=== PATIENT | male | born 1950 | race Caucasian/White ===

== ENCOUNTER 2018-01-03 19:16 | Emergency (ER) | payer MEDICARE ==
[2018-01-03 20:00] LABS: O2 Tension (PaO2) 90.2 mmHg (80.0-100.0); pH, Arterial 7.43 (7.35-7.45)
[2018-01-03 20:01] LABS: Base Excess (BEa) 3.3 mEq/L (0 (+/-) 2.5); Hematocrit-ABG 56.1 % (42.0-52.0); Hemoglobin (Hb) 13.8 g/dL (14.0-18.0)
[2018-01-03 20:02] LABS: Calcium, Ionized 1.2 mmol/L (1.12-1.30)
[2018-01-03 20:03] LABS: Analyzer IN Cardio ER; Puncture Site RR
[2018-01-03 20:03] LABS: #Lymphocytes 0.8 thou/uL (1.20-3.40); #Monocytes 0.5 thou/uL (0.11-0.59); #Neutrophils 7.9 thou/uL (1.40-6.50); %Basophils 0.1 % (0.0-1.0); %Eosinophils 0.2 % (0.0-10.0); %Lymphocytes 8.7 % (21.0-51.0); %Monocytes 4.9 % (0.0-10.0); %Neutrophils 86.1 % (42.0-75.0); Hemoglobin 14.6 g/dL (14.0-18.0); Mean Corpuscular HGB CONC 32.7 g/dL (32.0-36.0); Mean Corpuscular Hemoglobin 27.8 pg (27.0-31.0); Mean Platelet Volume 6.6 fL (7.4-10.4); Platelet Count 268 thou/uL (130-400); RBC Distribution Width 12.5 % (11.5-14.5); Red Blood Cell (RBC) Count 5.26 mill/uL (4.70-6.10); White Blood Cell (WBC) Count 9.1 thou/uL (4.8-10.8)
[2018-01-03 20:10] LABS: ALT (SGPT) 16 U/L (8-55); AST (SGOT) 21 U/L (5-34); Albumin 3.9 g/dL (3.4-4.8); Alkaline Phosphatase 80 U/L (40-150); Anion Gap 14 mmol/L (10-20); BUN (Urea Nitrogen) 11 mg/dL (8.4-25.7); Bilirubin, Total 0.3 mg/dL (0.2-1.2); Calc. Creatinine Clearance 0 mL/min (70-130); Calcium 9.7 mg/dL (7.8-10.44); Carbon Dioxide 25 mmol/L (23-31); Chloride 104 mmol/L (98-107); Estimated GFR-MDRD 73; Globulin 3.2 g/dL (2.4-3.5); Glucose 118 mg/dL (80-115); Potassium 4.4 mmol/L (3.5-5.1); Protein, Total 7.1 g/dL (5.8-8.1); Sodium 139 mmol/L (136-145)
[2018-01-03 20:14] LABS: CKMB 2.8 ng/mL (0-6.6); Troponin I Less than 0.010 ng/mL (< 0.028)
--- NOTE | 2018-01-03 20:17 | RAD ---
PORTABLE CHEST ONE VIEW: 01/03/18 at 7:58 p.m. HISTORY: Shortness of breath, fever, cough. FINDINGS/IMPRESSION: Comparison is made with exam of 11/05/15. There is continued elevation of the right hemidiaphragm. The heart size is normal. No lobar consolida tion, pneumothorax or pleural effusions are seen. A plate of atelectasis is seen at the right lung ba se. POS: [facility]
--- NOTE | 2018-01-03 21:10 | CT ---
CT PULMONARY ANGIOGRAM WITH IV CONTRAST AND 3D POSTPROCESSIN01/03/18 HISTORY: Cough, congestion, shortness of breath. FINDINGS: There is better opacification of the thoracic aorta compared to the pulmonary arterial vasculature. No thoracic aortic aneurysm or dissection is seen. No filling defects are seen in the central pulmona ry artery vasculature. Peripheral pulmonary embolism cannot be excluded on this study. No pleural or pericardial effusions are seen. No pneumothoraces, lobar consolidation or lung masses are noted. Ther e is elevation of the right hemidiaphragm. There is atelectatic change versus scarring in the lung ba ses. There is bronchiectasis in the lower lobes. Degenerative changes are present in the spine. There is a 1.6 cm right adrenal adenoma. IMPRESSION: No CT evidence of thoracic aortic aneurysm/dissection or central pulmonary embolism. POS: [facility]
== END 2018-01-03 22:50 | disposition home or self-care (01) ==
LOC: ERS 19:16
DX: J98.01 Acute bronchospasm (principal); J40 Bronchitis, not specified as acute or chronic; I10 Essential (primary) hypertension; K21.9 Gastro-esophageal reflux disease without esophagitis; F41.9 Anxiety disorder, unspecified; F32.9 Major depressive disorder, single episode, unspecified; Z79.899 Other long term (current) drug therapy
CPT/HCPCS: 36415; 71045; 71275; 80053; 82553; 82805; 84484; 85025; 87040; 93005; 94644; 96360; J7620

== ENCOUNTER 2018-01-07 11:58 | Inpatient (IN) | payer MEDICARE ==
[2018-01-07] MEDS ORDERED: methylPREDNISolone Sod Succ/PF 125 MG/2 ML VIAL ONE (14:46)
[2018-01-07 14:57] LABS: #Eosinphils 0.1 thou/uL (0.0-0.7); #Lymphocytes 0.9 thou/uL (1.20-3.40); #Monocytes 0.9 thou/uL (0.11-0.59); #Neutrophils 10.6 thou/uL (1.40-6.50); %Basophils 0.1 % (0.0-1.0); %Eosinophils 0.6 % (0.0-10.0); %Lymphocytes 7.5 % (21.0-51.0); %Monocytes 6.9 % (0.0-10.0); Hemoglobin 14.7 g/dL (14.0-18.0); Mean Corpuscular HGB CONC 32.5 g/dL (32.0-36.0); Mean Corpuscular Hemoglobin 27.5 pg (27.0-31.0); Mean Corpuscular Volume 84.9 fl (80.0-94.0); Mean Platelet Volume 6.2 fL (7.4-10.4); Platelet Count 322 thou/uL (130-400); RBC Distribution Width 12.5 % (11.5-14.5); Red Blood Cell (RBC) Count 5.34 mill/uL (4.70-6.10); White Blood Cell (WBC) Count 12.4 thou/uL (4.8-10.8)
--- NOTE | 2018-01-07 15:21 | RAD ---
CHEST ONE VIEW: History: Cough, congestion. Comparison: 01-03-18 FINDINGS: Cardiac silhouette and pulmonary vasculature are unremarkable. Right hemidiaphragm remains elevated. There is no lobar consolidation or evidence of pneumothorax. Mediastinum is midline. IMPRESSION: No active cardiopulmonary abnormalities are demonstrated. POS: [facility]
[2018-01-07 15:22] LABS: CKMB 3.9 ng/mL (0-6.6); Troponin I Less than 0.010 ng/mL (< 0.028)
[2018-01-07 15:27] LABS: ALT (SGPT) 21 U/L (8-55); AST (SGOT) 20 U/L (5-34); Albumin 3.9 g/dL (3.4-4.8); Alkaline Phosphatase 77 U/L (40-150); Anion Gap 15 mmol/L (10-20); BUN (Urea Nitrogen) 18 mg/dL (8.4-25.7); Bilirubin, Total 0.3 mg/dL (0.2-1.2); Calc. Creatinine Clearance 0 mL/min (70-130); Calcium 9.3 mg/dL (7.8-10.44); Carbon Dioxide 29 mmol/L (23-31); Chloride 102 mmol/L (98-107); Estimated GFR-MDRD 73; Globulin 2.8 g/dL (2.4-3.5); Glucose 104 mg/dL (80-115); Potassium 3.7 mmol/L (3.5-5.1); Protein, Total 6.7 g/dL (5.8-8.1); Sodium 142 mmol/L (136-145)
[2018-01-07] MEDS ORDERED: Acetaminophen 325 MG TAB PO PRN (17:58)
[2018-01-07] MEDS ORDERED: Guaifenesin DM 100-10/5 ML UDCUP PO PRN (17:58)
[2018-01-07] MEDS ORDERED: Senokot 8.6 MG TAB PO PRN (17:58)
--- NOTE | 2018-01-07 18:49 | HP ---
REASON FOR ADMISSION: Asthmatic bronchitis. HISTORY OF PRESENT ILLNESS: The patient gives history of having shortness of breath and coughing up yellowish green sputum for the last 3 weeks off and on. He has finished 1 course of Z-BERE and 2 roun ds of prednisone. In fact, he finished the last tablet of prednisone this morning. He has had mild subjective fever at home. Patient also states he has seasonal allergies. His nose is also stuffed u p at present. He had been to Dr. Dukes once and to the emergency room here a week back and has not had any resolution of his symptoms so far. He has taken his flu shot and pneumococcal shot for this year. He has had a stress test 4 years back which was negative per patient. No history of asthma o r COPD. No complaints of chest pain, no palpitation. Patient normally ambulates inside the house an d is not a very active person. PAST MEDICAL AND SURGICAL HISTORY: History of essential tremor, depression, anxiety, obesity, hypert ension, dyslipidemia, benign prostatic hypertrophy, tonsillectomy, left shoulder cyst removal, obstru ctive sleep apnea likely noncompliant with CPAP. CURRENT MEDICATIONS: Doxazosin 1 mg p.o. daily, escitalopram 20 mg p.o. daily, Zocor 10 mg p.o. keyshawn y, vitamin D3 of 1000 units p.o. daily, Protonix 40 mg p.o. daily, Reglan 10 mg p.o. twice daily p.r. n., uses Reglan to help with his GERD symptoms, Forfivo XL 450 mg p.o. daily. ALLERGIES: FLOMAX and SULFA. PERSONAL HISTORY: Does not abuse alcohol or drugs. No history of smoking. FAMILY HISTORY: Mother at the age of 83 from old age and dementia. Father was alcoholic and di ed secondary to complications from the same in his 50s. REVIEW OF SYSTEMS: The following complete review of systems was negative, unless otherwise mentioned in the HPI or below: Constitutional: Weight loss or gain, ability to conduct usual activities. Sk in: Rash, itching. Eyes: Double vision, pain. ENT/Mouth: Nose bleeding, neck stiffness, pain, te nderness. Cardiovascular: Palpitations, dyspnea on exertion, orthopnea. Respiratory: Shortness of breath, wheezing, cough, hemoptysis, fever or night sweats. Gastrointestinal: Poor appetite, abdom inal pain, heartburn, nausea, vomiting, constipation, or diarrhea. Genitourinary: Urgency, frequenc y, dysuria, nocturia. Musculoskeletal: Pain, swelling. Neurologic/Psychiatric: Anxiety, depressio n. Allergy/Immunologic: Skin rash, bleeding tendency. PHYSICAL EXAMINATION: GENERAL: The patient is a 67-year-old male who is currently not in any acute distress. VITAL SIGNS: Blood pressure 138/80, pulse 100 per minute, respiratory rate 16 per minute, temperatur e 97.8 degrees Fahrenheit, saturating 94% on room air. NECK: Supple, no elevated JVD. HEENT: Eyes, extraocular muscles intact. Pupils are reacting to light. Oral cavity, mucous membran es are moist. No exudates or congestion. CARDIOVASCULAR: S1, S2 heard. Regular rhythm. RESPIRATORY: Air entry 1+ bilateral. Scattered rhonchi plus bilateral. Mild wheezes bilaterally. ABDOMEN: Soft, bowel sounds heard. No tenderness, rigidity or guarding. EXTREMITIES: No peripheral edema or calf tenderness. VASCULAR SYSTEM: Peripheral pulses 1+ bilateral, no ischemic ulcerations or gangrene. CENTRAL NERVOUS SYSTEM: No gross focal deficits seen. Patient is alert, awake, oriented well. PSYCHIATRIC: The patient's mood is euthymic. No hallucinations or delusions. LABORATORY AND X-RAY FINDINGS: White count of 12, H&H 14 and 45, platelet count 322 with 85% neutrop hils, MCV is 84. Electrolytes are stable. BUN 18, creatinine 1.0. Glucose 104. First set of cardi ac enzymes are negative. Albumin is 3.9. BNP is 23. He has had a prior stress test done here in which showed an EF of 72% and was unremarkable. Chest x-ray done showed no acute cardiopulmona ry abnormalities. CLINICAL IMPRESSION AND PLAN: The patient will be admitted to medical floor for likely asthmatic bro nchitis. We will obtain a viral PCR as well. The patient will be placed on Solu-Medrol IV q.6 hourl y along with gentle hydration with normal saline at 60 mL per hour for 1 liter. He will also be on D uoNebs. We will continue his doxazosin, Lexapro, simvastatin as before. We will place him on empiri c Levaquin for now. The patient has finished nearly 2 rounds of steroids in the outpatient setting f rom last 3 weeks and has also taken a full course of Z-BERE in the last 3 weeks. We will continue to closely monitor him on medical floor. The patient will be advised to continue his CPAP at his home s ettings.
[2018-01-07 19:13] VITALS: BMI 35.4
[2018-01-07] MEDS: Metoclopramide HCl 10 MG TAB PO SCH (20:31)
[2018-01-07] MEDS: Simvastatin 20 MG TAB PO SCH (20:31)
[2018-01-07] MEDS: Famotidine 20 MG TAB PO SCH (20:31)
[2018-01-07] MEDS: Sodium Chloride 0.9% 1,000 ML IV SCH (20:32)
[2018-01-08 05:39] LABS: Hemoglobin 14.1 g/dL (14.0-18.0); Mean Corpuscular HGB CONC 31.6 g/dL (32.0-36.0); Mean Corpuscular Hemoglobin 27.6 pg (27.0-31.0); Mean Corpuscular Volume 87.4 fl (80.0-94.0); Mean Platelet Volume 6.7 fL (7.4-10.4); Platelet Count 317 thou/uL (130-400); RBC Distribution Width 12.6 % (11.5-14.5); White Blood Cell (WBC) Count 13.7 thou/uL (4.8-10.8)
[2018-01-08 05:40] LABS: Band 4 % (5-11); Lymphocytes 6 % (21-51); MDiff Complete? YES; Monocytes 4 % (0-10); Neutrophil 86 % (42-75); PLT Morphology Comment Appears Adequate
[2018-01-08 05:59] LABS: Anion Gap 12 mmol/L (10-20); BUN (Urea Nitrogen) 20 mg/dL (8.4-25.7); Calc. Creatinine Clearance 132 mL/min (70-130); Carbon Dioxide 30 mmol/L (23-31); Chloride 104 mmol/L (98-107); Estimated GFR-MDRD 88; Glucose 134 mg/dL (80-115); Potassium 4.2 mmol/L (3.5-5.1); Sodium 142 mmol/L (136-145)
[2018-01-08] MEDS: Metoclopramide HCl 10 MG TAB PO SCH ×2 (08:19→20:14)
[2018-01-08] MEDS: Famotidine 20 MG TAB PO SCH ×2 (08:19→20:14)
[2018-01-08] MEDS: Escitalopram Oxalate 10 mg Tablet PO SCH (08:19)
[2018-01-08] MEDS: Doxazosin Mesylate 1 MG TAB PO SCH (08:19)
[2018-01-08] MEDS: Enoxaparin Sodium 40 MG/0.4 ML SYRINGE SC SCH (08:19)
[2018-01-08] MEDS: Sodium Chloride 0.9% 1,000 ML IV SCH (10:42)
--- NOTE | 2018-01-08 10:59 | PDOC.PN ---
- Subjective Encounter Start Date: 01/08/18 Encounter Start Time: 13:00 Subjective: Continued cough and wheezing, better with nebs. Still requiring O2. - Objective Resuscitation Status: Resuscitation Status FULL:Full Resuscitation MAR Reviewed: Yes Vital Signs & Weight: Vital Signs (12 hours) Temp Pulse Resp BP Pulse Ox 01/08/18 08:00 97.6 F 94 20 95 01/08/18 07:43 97.6 F 94 20 158/94 H 91 L 01/08/18 06:13 91 18 93 L 01/08/18 04:00 97.9 F 66 18 126/83 93 L 01/08/18 01:49 97.8 F 93 20 133/69 92 L 01/08/18 00:29 96 16 93 L Weight Weight 254 lb I&O: 01/07/18 01/08/18 01/09/18 06:59 06:59 06:59 Intake Total 1140 240 Balance 1140 240 Result Diagrams: 01/08/18 04:20 01/08/18 04:20 Phys Exam - Physical Examination Constitutional: NAD HEENT: moist MMs Respiratory: no rales, no rhonchi scattered wheezing, paroxysmal cough Cardiovascular: RRR, no significant murmur Gastrointestinal: soft, positive bowel sounds Musculoskeletal: no edema Neurological: non-focal, moves all 4 limbs Psychiatric: normal affect, A&O x 3 Dx/Plan (1) Asthmatic bronchitis Code(s): J45.909 - UNSPECIFIED ASTHMA, UNCOMPLICATED Status: Acute Qualifiers: Asthma severity: moderate Comment: requiring oxygen overnight, on steroids, nebs (2) CATHIE (obstructive sleep apnea) Code(s): G47.33 - OBSTRUCTIVE SLEEP APNEA (ADULT) (PEDIATRIC) Status: Chronic Comment: on night time CPAP (3) Hypertension Code(s): I10 - ESSENTIAL (PRIMARY) HYPERTENSION Status: Chronic (4) Hyperlipidemia Code(s): E78.5 - HYPERLIPIDEMIA, UNSPECIFIED Status: Chronic - Plan cont current plan of care, respiratory therapy Consult pulmonology -: Counselled patient to use CPAP even if have to shave to use it * . - Discharge Day Encounter end time: 13:20
--- NOTE | 2018-01-08 14:06 | CON ---
DATE OF CONSULTATION: 01/08/2018 HISTORY: Mr. Trotter is a 67-year-old morbidly obese gentleman. Surprisingly he never smoke d. He has quite a bit of shortness of breath, coughing, unresponsive to usual home medication. He has never seen a polisher apprentice before, but I see he had a PFT done which was mainly a restrictive pulmonary impairment. He says he is a couch potato and apparently has not been walking any distance. He has a previous his tory of bronchitis, but no pneumonia, no history of asthma. PAST MEDICAL HISTORY: Sleep apnea by history, though he has never been tested, refused to wear a CPA P mask. History of hypertension, reflux, depression, lipidemia. PAST SURGICAL HISTORY: Prostate biopsy, back cyst. SOCIAL/FAMILY HISTORY: No alcohol, tobacco abuse, minimal alcohol years ago. ALLERGIES: SULFA. REVIEW OF SYSTEMS: Otherwise, 10-point negative. SOCIAL HISTORY: Office related work. Please note I reviewed all his x-rays, including all his medical records. There are no family members to get additional information. PHYSICAL EXAMINATION: VITAL SIGNS: Sats 95 on 3 liters. Blood pressure is 148/90, respiratory 18, temperature 97. CHEST: Chest revealed minimal wheezing. CARDIAC: Normal S1-S2. No gallops. ABDOMEN: Soft. No mass. White count 13,000, H&H 8 and 34, platelet count 317. Electrolytes are normal. So far cultures negative. As noted, his initial chest x-ray really did not show any obvious infiltra gael. IMPRESSION: 1. Chronic obstructive pulmonary disease exacerbation. 2. Bronchitis in a nonsmoker. 3. Morbid obesity. 4. Sleep apnea. 5. Hypertension. 6. Elevated right hemidiaphragm. PLAN: I have added Symbicort to his present aggressive neb treatments, steroids, and antibiotics. Will follow. Once again will encourage the patient to lose weight. We will encourage him to have a sleep study. This is a consult note, 70 minutes out of which 50% of the time was spent at the bedside direct patie nt care.
[2018-01-08] MEDS: Mometasone/Formoterol 120 PUFF INHALER INH SCH (18:44)
[2018-01-08] MEDS: Simvastatin 20 MG TAB PO SCH (20:14)
[2018-01-09] MEDS: Sodium Chloride 0.9% 1,000 ML IV SCH ×3 (03:33→20:40)
[2018-01-09] MEDS: Mometasone/Formoterol 120 PUFF INHALER INH SCH ×2 (06:16→18:33)
[2018-01-09] MEDS: Metoclopramide HCl 10 MG TAB PO SCH ×2 (08:07→20:39)
[2018-01-09] MEDS: Famotidine 20 MG TAB PO SCH ×2 (08:07→20:40)
[2018-01-09] MEDS: Doxazosin Mesylate 1 MG TAB PO SCH (08:07)
[2018-01-09] MEDS: Escitalopram Oxalate 10 mg Tablet PO SCH (08:07)
[2018-01-09] MEDS: Enoxaparin Sodium 40 MG/0.4 ML SYRINGE SC SCH (08:07)
[2018-01-09] MEDS: guaiFENesin ER 600 MG TAB PO SCH ×2 (09:22→20:40)
--- NOTE | 2018-01-09 09:34 | PRG ---
DATE OF SERVICE: 01/09/2018 This morning he is still coughing, though clearly he is better. He is still wheezing. His son at th e bedside who said his father's cough is not any better. PHYSICAL EXAMINATION: VITAL SIGNS: O2 sats 95% on 3 liters, temperature is 99, blood pressure 155/93. CHEST: Chest has minimal wheezing. CARDIAC: Normal S1, S2. ABDOMEN: Soft, no masses. IMPRESSION: 1. Chronic obstructive pulmonary disease exacerbation. 2. Bronchitis. PLAN: Dulera, Mucinex, steroids continued. PT. I will follow.
--- NOTE | 2018-01-09 10:14 | PDOC.PN ---
- Subjective Encounter Start Date: 01/09/18 Encounter Start Time: 13:40 Subjective: Cough mildly improved. SOB better. O2 weaned down to 2L NC. - Objective Resuscitation Status: Resuscitation Status FULL:Full Resuscitation MAR Reviewed: Yes Vital Signs & Weight: Vital Signs (12 hours) Temp Pulse Resp BP Pulse Ox 01/09/18 08:00 97.9 F 100 20 152/93 H 94 L 01/09/18 06:16 95 16 95 01/09/18 06:13 95 16 95 01/09/18 04:00 97.8 F 92 20 155/93 H 95 01/09/18 00:00 97.7 F 101 H 22 H 149/84 H 93 L 01/08/18 23:08 97 16 97 Weight Weight 254 lb I&O: 01/08/18 01/09/18 01/10/18 06:59 06:59 06:59 Intake Total 1140 1680 360 Balance 1140 1680 360 Result Diagrams: 01/08/18 04:20 01/08/18 04:20 Phys Exam - Physical Examination Constitutional: NAD HEENT: moist MMs Respiratory: no rales, no rhonchi rare wheeze, good air movement throughout Cardiovascular: RRR, no significant murmur Gastrointestinal: soft, positive bowel sounds Musculoskeletal: no edema Neurological: non-focal, moves all 4 limbs Psychiatric: normal affect, A&O x 3 Dx/Plan (1) Asthmatic bronchitis Code(s): J45.909 - UNSPECIFIED ASTHMA, UNCOMPLICATED Status: Acute Qualifiers: Asthma severity: moderate Comment: requiring oxygen, on steroids, Levaquin, Duljuan f, pepito, Dr. Swanson following (2) CATHIE (obstructive sleep apnea) Code(s): G47.33 - OBSTRUCTIVE SLEEP APNEA (ADULT) (PEDIATRIC) Status: Chronic Comment: CPAP won't seal with stoner and doesn't want to shave (3) Hypertension Code(s): I10 - ESSENTIAL (PRIMARY) HYPERTENSION Status: Chronic (4) Hyperlipidemia Code(s): E78.5 - HYPERLIPIDEMIA, UNSPECIFIED Status: Chronic - Plan cont current plan of care, respiratory therapy, DVT proph w/lovenox, DVT proph w /SCDs May end up needed home oxygen * . - Discharge Day Encounter end time: 14:00
[2018-01-09] MEDS ORDERED: cloNIDine 0.1 MG TAB PO PRN (20:21)
[2018-01-09] MEDS: Simvastatin 20 MG TAB PO SCH (20:40)
[2018-01-10] MEDS: Mometasone/Formoterol 120 PUFF INHALER INH SCH (06:22)
[2018-01-10] MEDS: Escitalopram Oxalate 10 mg Tablet PO SCH (07:53)
[2018-01-10] MEDS: guaiFENesin ER 600 MG TAB PO SCH (07:53)
[2018-01-10] MEDS: Enoxaparin Sodium 40 MG/0.4 ML SYRINGE SC SCH (07:53)
[2018-01-10] MEDS: Famotidine 20 MG TAB PO SCH (07:53)
[2018-01-10] MEDS: Metoclopramide HCl 10 MG TAB PO SCH (07:54)
[2018-01-10] MEDS: Doxazosin Mesylate 1 MG TAB PO SCH (07:54)
[2018-01-10] MEDS ORDERED: predniSONE 20 MG TAB PO SCH (09:00)
[2018-01-10] MEDS ORDERED: Lisinopril 20 MG TAB PO SCH (09:00)
--- NOTE | 2018-01-10 09:04 | PRG ---
DATE OF SERVICE: 01/10/2018 This morning he is awake, response is better. His cough is improved. PHYSICAL EXAMINATION: VITAL SIGNS: Sats 90% on 2 liters, temperature is 97, respirations 16, blood pressure 102/89. CHEST: No wheezing. HEART: Normal S1 and S2. IMPRESSION: 1. Bronchitis. 2. Chronic obstructive pulmonary disease. 3. Asthma. 4. Sleep apnea. PLAN: Switch over to oral prednisone. He can be discharged home anytime.
--- NOTE | 2018-01-10 09:55 | PDOC.PN ---
- Subjective Encounter Start Date: 01/10/18 Encounter Start Time: 12:30 Subjective: Patient doing much better. Coughing markedly improved. Still desating -: on oxygen. 86% on RA lying at rest right now. - Objective Resuscitation Status: Resuscitation Status FULL:Full Resuscitation MAR Reviewed: Yes Vital Signs & Weight: Vital Signs (12 hours) Temp Pulse Resp BP Pulse Ox 01/10/18 08:00 97.7 F 96 16 182/109 H 97 01/10/18 06:25 96 01/10/18 06:24 91 16 96 01/10/18 06:22 91 16 96 01/10/18 01:16 97 16 95 Weight Weight 254 lb I&O: 01/09/18 01/10/18 01/11/18 06:59 06:59 06:59 Intake Total 1680 1870 240 Balance 1680 1870 240 Result Diagrams: 01/08/18 04:20 01/08/18 04:20 Phys Exam - Physical Examination Constitutional: NAD HEENT: moist MMs Respiratory: no rales, no rhonchi rare wheeze, no coughing fit Cardiovascular: RRR, no significant murmur Gastrointestinal: soft, positive bowel sounds Musculoskeletal: no edema Neurological: non-focal, moves all 4 limbs Psychiatric: normal affect, A&O x 3 Dx/Plan (1) Asthmatic bronchitis Code(s): J45.909 - UNSPECIFIED ASTHMA, UNCOMPLICATED Status: Acute Qualifiers: Asthma severity: moderate Comment: requiring oxygen, on steroids, Levaquin, Dulera, nebs, Dr. Swanson following (2) CATHIE (obstructive sleep apnea) Code(s): G47.33 - OBSTRUCTIVE SLEEP APNEA (ADULT) (PEDIATRIC) Status: Chronic Comment: CPAP won't seal with stoner and doesn't want to shave (3) Hypertension Code(s): I10 - ESSENTIAL (PRIMARY) HYPERTENSION Status: Chronic (4) Hyperlipidemia Code(s): E78.5 - HYPERLIPIDEMIA, UNSPECIFIED Status: Chronic - Plan cont current plan of care, continue antibiotics, respiratory therapy O2 sat 86% on RA. Patient will require jail home oxygen. Will -: have case management set up and then will d/c home later today. * . - Discharge Day Encounter end time: 12:55
[2018-01-10 11:26] VITALS: BP 157/97; TEMP 98.2
--- NOTE | 2018-01-10 18:56 | DIS ---
PRIMARY CARE PHYSICIAN: Angelo Dukes M.D. ADMISSION DIAGNOSES: 1. Asthmatic bronchitis. 2. Obstructive sleep apnea. DISCHARGE DIAGNOSES: 1. Chronic obstructive pulmonary disease with acute asthmatic bronchitis. 2. Obstructive sleep apnea. 3. Hypertension. 4. Hyperlipidemia. PROCEDURES: None. CONSULTATIONS: Pulmonology, Dr. Swanson. SUMMARY OF HOSPITAL COURSE: This is a 67-year-old white male with a recent history of multiple breat khanh exacerbations and has had to be hospitalized in the last year, seen by Dr. Swanson at that time and diagnosed with COPD. He never followed up and did not report a history of COPD when he presented wi th 3 weeks of on and off coughing with a productive of yellow-green sputum, cough got much worse. He is wheezing a lot with it. He did have some Z-Blayne and two rounds of prednisone. When he presented to the emergency room, he was having significant increased work of breathing, wheezing and room air h ypoxia. The patient was admitted to the hospital, Dr. Swanson was consulted. The patient was put on st eroids, antibiotics, and nebulizers. He slowly improved over the course of the hospitalization; burns louis, he remained room air hypoxic throughout his hospital stay even after his cough had resolved. He was saturating 86% on room air the day of discharge, so he is being discharged with home oxygen. DISCHARGE MANAGEMENT: Discharged home with home health to provide home oxygen. ACTIVITY: As tolerated. DIET: Healthy heart, low sodium diet. Home equipment supplies, nebulizer treatments and oxygen. FOLLOWUP: Follow up with Dr. Swanson in 2-[address] Dukes in 2-3 weeks. DISCHARGE MEDICATIONS: 1. DuoNeb every 6 hours as needed for coughing, wheezing, shortness of breath. Patient already has a nebulizer at home. 2. Levaquin 500 mg daily for another 2 days. 3. Lisinopril 20 mg daily. 4. Dulera 200/5 mcg 2 puffs inhaled twice a day. 5. Prednisone 20 mg twice a day for 4 more days and he is to resume all of his home medications. 6. Zyrtec 10 mg daily. 7. Metoclopramide 10 mg twice a day. 8. Protonix 40 mg daily. 9. Zocor 10 mg at night. 10. Trazodone 100 mg at night. 11. Bupropion 300 mg each morning. 12. Cardura 1 mg daily. 13. Escitalopram 10 mg daily.
== END 2018-01-10 15:19 | disposition home health service (06) | DRG 192 ==
LOC: ERS 11:58 → T4-B 16:48
PROVIDERS: ADMIT Internal Medicine; ATTEND Internal Medicine
DX: J44.1 Chronic obstructive pulmonary disease with (acute) exacerbation (principal); E66.01 Morbid (severe) obesity due to excess calories; E78.5 Hyperlipidemia, unspecified; G47.33 Obstructive sleep apnea (adult) (pediatric); I10 Essential (primary) hypertension; F41.9 Anxiety disorder, unspecified; J44.0 Chronic obstructive pulmonary disease with (acute) lower respiratory infection; F32.9 Major depressive disorder, single episode, unspecified; J20.9 Acute bronchitis, unspecified; J45.40 Moderate persistent asthma, uncomplicated; J98.6 Disorders of diaphragm; Z68.35 Body mass index [BMI] 35.0-35.9, adult
CPT/HCPCS: 36415; 71045; 80048; 80053; 82553; 83880; 84484; 85025; 87633; 94640; 96374; 99214; G0463; J1650; J2920; J2930; J7620

== ENCOUNTER 2018-01-13 10:59 | Outpatient (CLI) | payer MEDICARE ==
[2018-01-13] MEDS ORDERED: Iopamidol 370 76% 100 ML VIAL ONE (16:47)
== END 2018-01-13 11:00 | disposition home or self-care (01) ==
LOC: BICCT 10:59
PROVIDERS: ATTEND Urology
DX: R31.29 Other microscopic hematuria (principal); N32.89 Other specified disorders of bladder; K85.90 Acute pancreatitis without necrosis or infection, unspecified; D35.01 Benign neoplasm of right adrenal gland; R19.00 Intra-abdominal and pelvic swelling, mass and lump, unspecified site
CPT/HCPCS: 74178

== ENCOUNTER 2018-02-18 10:45 | Day surgery (SDC) | payer MEDICARE ==
[2018-02-17 08:51] VITALS: BMI 36.9
[2018-02-18] MEDS ORDERED: Fleet Enema 133 ML BOT FS SCH (11:30)
[2018-02-18] MEDS ORDERED: Lidocaine Viscous Sol 2% 15 ml UD Cup ONE (12:03)
--- NOTE | 2018-02-18 14:11 | OP ---
DATE OF PROCEDURE: 02/18/2018 PROCEDURE: Esophagogastroduodenoscopy and colonoscopy with snare polypectomy and biopsy. PREOPERATIVE DIAGNOSIS: Gastroesophageal reflux disease and change in bowel habits with constipation . OPERATIVE NOTE: Informed consent was obtained from the patient. He was sedated with total intraveno us anesthesia. The bite block was placed and the endoscope was advanced easily to the second portion of the duodenum and retroflexion was performed in the stomach. The esophagus was normal. The GE ju nction was normal. The stomach was normal including retroflexed views. The pylorus and first and se cond portions of the duodenum were normal. The patient was turned around. Rectal exam was performed and was normal. The colonoscope was advanced to the cecum where the ileocecal valve and appendiceal orifice were clearly identified. The preparation quality was fair. Two polyps were removed from th e ascending colon. One was removed by cold snare and measured 4 mm, the second was a 3 mm polyp christiano [place] by cold biopsy forceps. A 7 mm polyp was removed from the hepatic flexure by snare cautery polyp ectomy. Three polyps measuring 4-5 mm were removed from the hepatic flexure by cold snare polypectom y. A 4 mm polyp was removed by cold snare polypectomy from the descending colon. The remainder of t he colonic mucosa was normal. Retroflexed views in the rectum were normal. IMPRESSION: 1. Normal esophagogastroduodenoscopy. 2. Two ascending polyps. 3. Four hepatic flexure polyps. 4. One descending colon polyp. 5. Otherwise normal colonoscopy with fair bowel prep. RECOMMENDATIONS: 1. Await histopathology. 2. Repeat colonoscopy in 3 years. 3. Continue pantoprazole. 4. Restart MiraLax 17 grams daily. 5. Follow up in GI Clinic in a month.
[2018-02-18] MEDS ORDERED: PROPOFOL 200 MG/20 ML VIAL ONE (15:54)
[2018-02-18] MEDS ORDERED: Lidocaine 1% PF 5 ML VIAL ONE (15:54)
== END 2018-02-18 14:50 | disposition home or self-care (01) ==
LOC: SDC 10:45
PROVIDERS: ATTEND Internal Medicine Gastroenterology
PROC: 0DBK8ZX Excision of Ascending Colon, Via Natural or Artificial Opening Endoscopic, Diagnostic (ICD-10-PCS; principal; 2018-02-18)
PROC: 0DBK8ZX Excision of Ascending Colon, Via Natural or Artificial Opening Endoscopic, Diagnostic (ICD-10-PCS; 2018-02-18)
PROC: 0DBL8ZX Excision of Transverse Colon, Via Natural or Artificial Opening Endoscopic, Diagnostic (ICD-10-PCS; 2018-02-18)
PROC: 0DBM8ZX Excision of Descending Colon, Via Natural or Artificial Opening Endoscopic, Diagnostic (ICD-10-PCS; 2018-02-18)
PROC: 0DJ08ZZ Inspection of Upper Intestinal Tract, Via Natural or Artificial Opening Endoscopic (ICD-10-PCS; 2018-02-18)
DX: D12.2 Benign neoplasm of ascending colon (principal); D12.4 Benign neoplasm of descending colon; D12.3 Benign neoplasm of transverse colon; K21.9 Gastro-esophageal reflux disease without esophagitis; Z88.2 Allergy status to sulfonamides; Z88.8 Allergy status to other drugs, medicaments and biological substances
CPT/HCPCS: 88305; J2001; J2704

== ENCOUNTER 2018-05-06 07:31 | Outpatient (CLI) | payer MEDICARE ==
--- NOTE | 2018-05-06 14:19 | NM ---
RADIONUCLIDE GASTRIC EMPTYING SCAN: Date: 05/06/18 HISTORY: Gastroesophageal reflux disease without esophagitis. RADIOPHARMACEUTICAL: 2.2 mCi technetium-99m sulfur colloid administered orally in scrambled eggs. FINDINGS/IMPRESSION: There is 41% emptying the ingested gastric contents at 1 hour, 45% emptying at 2 hours, and 99% empty ing at 3 hours. The calculated gastric emptying 1/2 time measures 124 minutes. POS: [facility]
== END 2018-05-06 07:32 | disposition home or self-care (01) ==
LOC: NM 07:31
PROVIDERS: ATTEND Internal Medicine Gastroenterology
DX: K21.9 Gastro-esophageal reflux disease without esophagitis (principal); K59.00 Constipation, unspecified; R11.10 Vomiting, unspecified
CPT/HCPCS: 78264; A9541

== ENCOUNTER 2018-06-02 12:36 | Outpatient (CLI) | payer MEDICARE ==
[2018-06-02] MEDS ORDERED: Iopamidol 370 76% 100 ML VIAL ONE (12:59)
== END 2018-06-02 12:37 | disposition home or self-care (01) ==
LOC: BICCT 12:36
PROVIDERS: ATTEND Otolaryngology
DX: D10.1 Benign neoplasm of tongue (principal); K14.6 Glossodynia; R53.83 Other fatigue
CPT/HCPCS: 70491

== ENCOUNTER 2018-06-26 13:13 | Day surgery (SDC) | payer MEDICARE ==
[2018-06-26 13:22] VITALS: BMI 36.3
[2018-06-26] MEDS ORDERED: Lidocaine 1% PF 5 ML VIAL ONE (13:41)
[2018-06-26 14:10] VITALS: BP 117/75; TEMP 97.5
--- NOTE | 2018-06-26 14:45 | ULT ---
THYROID ULTRASOUND: Date: 06/26/18 HISTORY: Thyroid nodule. COMPARISON: CT neck from outside facility dated 06/02/18. FINDINGS/IMPRESSION: Real-time examination of right thyroid nodule, which was wider than tall, solid, and isoechoic, with sharply marginated borders without echogenic focus. This is TI-RADS 3: Mildly suspicious. Given its size, follow-up in 6 months-1 year is recommended. No fine needle aspiration is required at this time . POS: [facility]
== END 2018-06-26 14:16 | disposition home or self-care (01) ==
LOC: ULT 13:13
PROVIDERS: ATTEND Otolaryngology
DX: E04.1 Nontoxic single thyroid nodule (principal); G47.30 Sleep apnea, unspecified; I10 Essential (primary) hypertension; K21.9 Gastro-esophageal reflux disease without esophagitis; F32.9 Major depressive disorder, single episode, unspecified; J34.3 Hypertrophy of nasal turbinates; J34.2 Deviated nasal septum; Z79.899 Other long term (current) drug therapy; Z88.2 Allergy status to sulfonamides; Z88.8 Allergy status to other drugs, medicaments and biological substances; Z98.890 Other specified postprocedural states
CPT/HCPCS: 76536; J2001

== ENCOUNTER 2018-07-03 07:42 | Outpatient (CLI) | payer MEDICARE ==
--- NOTE | 2018-07-03 10:43 | CT ---
CT ABDOMEN WITH CONTRAST CT PELVIS WITH CONTRAST: DATE: 07/03/18 TIME: 0816 HOURS HISTORY: 67-year-old male with periumbilical pain. R10.33. COMPARISON: 01/01/17. TECHNIQUE: IV injection of iodinated contrast media: 100 mL [id number]. Oral contrast media: Readi-Cat. FINDINGS: The appendix is normal (it abuts the inferior surface of the cecum throughout its short course and is therefore difficult to see on axial images, and best visualized on coronal images 66-72 of 181, seri es 601). The tiny right adrenal nodule previously mentioned is unchanged and is probably an adenoma. Left adrenal is normal. Hepatic attenuation is diffusely slightly low, suggestive of fatty liver. Aga in noted is the chronically elevated right hemidiaphragm. No abdominal aortic aneurysm. Bilateral kid neys, pancreas, left adrenal, and spleen are normal. No small bowel dilation. Mild indentation of the bladder base by mildly enlarged prostate gland. Urinary bladder is incompletely distended. No ascite s or pneumoperitoneum. Minimal questionable fat stranding around segment of proximal sigmoid colon pr obably represents branches of small blood vessels rather than edema, and probably does not represent diverticulitis. There is no pneumoperitoneum or ascites. Plate-like density at right lower lobe is co nsistent with scar, unchanged since the previous CT. New small scar at posterior base of left lung. N o pleural effusion. IMPRESSION: 1. Normal appendix. 2. No acute findings. 3. Hepatic steatosis. 4. Chronically elevated right hemidiaphragm. THU POS: [facility]
[2018-07-03] MEDS ORDERED: Iopamidol 370 76% 100 ML VIAL ONE (14:19)
== END 2018-07-03 07:43 | disposition home or self-care (01) ==
LOC: CT 07:42
PROVIDERS: ATTEND Internal Medicine Gastroenterology
DX: R10.33 Periumbilical pain (principal); K58.1 Irritable bowel syndrome with constipation; K21.9 Gastro-esophageal reflux disease without esophagitis; K76.0 Fatty (change of) liver, not elsewhere classified; Q79.1 Other congenital malformations of diaphragm
CPT/HCPCS: 74177; 82565

== ENCOUNTER 2018-10-10 12:05 | Emergency (ER) | payer MEDICARE ==
[2018-10-10 12:55] LABS: #Eosinphils 0.3 thou/uL (0.0-0.7); #Lymphocytes 1.8 thou/uL (1.20-3.40); #Monocytes 0.7 thou/uL (0.11-0.59); #Neutrophils 11.8 thou/uL (1.40-6.50); %Basophils 0.2 % (0.0-1.0); %Lymphocytes 12.2 % (21.0-51.0); %Neutrophils 80.6 % (42.0-75.0); Hemoglobin 16.6 g/dL (14.0-18.0); Mean Corpuscular HGB CONC 32.2 g/dL (32.0-36.0); Mean Corpuscular Hemoglobin 27.4 pg (27.0-31.0); Mean Corpuscular Volume 84.9 fL (78.0-98.0); Mean Platelet Volume 7.1 fL (7.4-10.4); Platelet Count 252 thou/uL (130-400); RBC Distribution Width 13.9 % (11.5-14.5); Red Blood Cell (RBC) Count 6.07 mill/uL (4.70-6.10); White Blood Cell (WBC) Count 14.6 thou/uL (4.8-10.8)
--- NOTE | 2018-10-10 13:13 | RAD ---
PORTABLE CHEST ONE VIEW: Date: 10-10-18 Time: 12:49 p.m. History: Shortness of breath. FINDINGS: Comparison is made with the exam of 01-07-18. There is continued elevation of the right hemidiaphragm. The heart size is normal. No focal areas of consolidation, pneumothorax or pleural effusions are seen. IMPRESSION: No acute process. POS: [facility]
[2018-10-10 13:17] LABS: ALT (SGPT) 26 U/L (8-55); AST (SGOT) 16 U/L (5-34); Albumin 3.9 g/dL (3.4-4.8); Alkaline Phosphatase 84 U/L (40-150); Anion Gap 13 mmol/L (10-20); BUN (Urea Nitrogen) 19 mg/dL (8.4-25.7); Bilirubin, Total 0.6 mg/dL (0.2-1.2); CK (CPK) 37 U/L (30-200); Calc. Creatinine Clearance 0 mL/min (70-130); Calcium 9.5 mg/dL (7.8-10.44); Carbon Dioxide 29 mmol/L (23-31); Chloride 103 mmol/L (98-107); Estimated GFR-MDRD 65; Globulin 2.7 g/dL (2.4-3.5); Glucose 70 mg/dL (80-115); Potassium 4.1 mmol/L (3.5-5.1); Protein, Total 6.6 g/dL (5.8-8.1); Sodium 141 mmol/L (136-145)
--- NOTE | 2018-10-11 13:58 | EKG ---
Test Reason : NEAR SYNCOPE Blood Pressure : / mmHG Vent. Rate : 046 BPM Atrial Rate : 046 BPM P-R Int : 150 ms QRS Dur : 094 ms QT Int : 526 ms P-R-T Axes : 034 023 055 degrees QTc Int : 460 ms Sinus bradycardia Otherwise normal ECG Confirmed by PATSY HUGHES D.O. ([id number]), communications editor KIRA FREDERICK ([id number]) on 10/11/2018 1:58:46 PM Referred By: Confirmed By:PATSY HUGHES D.O.
== END 2018-10-10 14:05 | disposition home or self-care (01) ==
LOC: ERS 12:05
DX: R00.1 Bradycardia, unspecified (principal); I10 Essential (primary) hypertension
CPT/HCPCS: 36415; 71045; 80053; 82550; 84484; 85025; 93005

== ENCOUNTER 2019-01-15 11:39 | Outpatient (CLI) | payer MEDICARE ==
--- NOTE | 2019-01-15 14:05 | RAD ---
CHEST TWO VIEWS: 01/15/2019 HISTORY: Upper respiratory infection. Recent fall. Left-sided rib pain. COMPARISON: 10/15/2016 FINDINGS: No pneumothorax, pleural fluid, lobar consolidation, or alveolar edema. The lungs are hyperinflated, and there is increased linear interstitial density, suggesting COPD, in the proper clinical setting. IMPRESSION: Interstitial prominence and pulmonary hyperinflation, as detailed above. POS: [facility]
== END 2019-01-15 11:40 | disposition home or self-care (01) ==
LOC: BICRAD 11:39
PROVIDERS: ATTEND Family Medicine
DX: R07.81 Pleurodynia (principal); W19.XXXA Unspecified fall, initial encounter; J98.4 Other disorders of lung
CPT/HCPCS: 71046

== ENCOUNTER 2019-02-10 12:44 | Outpatient (CLI) | payer MEDICARE ==
--- NOTE | 2019-02-10 14:56 | ULT ---
Thyroid ultrasound Clinical history: Thyroid nodule, follow-up COMPARISON: June 26, 2018 FINDINGS: There is a round, isoechoic solid echotexture nodule of the mid to lower right thyroid lobe , measuring approximately 1.5 x 1.4 cm. No new discrete thyroid nodules. IMPRESSION: Grossly stable solid echotexture right lower lobe nodule, with tirads score of 3. (Mildly suspicious) Given size of 1.5 cm, continued imaging follow-up is recommended which may be performed at 12 month interval.
== END 2019-02-10 12:45 | disposition home or self-care (01) ==
LOC: BICULT 12:44
PROVIDERS: ATTEND Otolaryngology
DX: E04.1 Nontoxic single thyroid nodule (principal)
CPT/HCPCS: 76536

== ENCOUNTER 2019-04-21 12:53 | Outpatient (CLI) | payer MEDICARE | END 2019-04-21 12:54 | disposition home or self-care (01) | LOC: CP 12:53 | PROVIDERS: ATTEND Internal Medicine | DX: R05 Cough (principal); G47.33 Obstructive sleep apnea (adult) (pediatric) | CPT/HCPCS: 94060; 94727; 94729 ==

== ENCOUNTER 2019-11-18 14:16 | Outpatient (CLI) | payer MEDICARE ==
--- NOTE | 2019-11-18 15:29 | RAD ---
CERVICAL SPINE SIX VIEWS: HISTORY: Cervicalgia. COMPARISON: None. FINDINGS: The open-mouth odontoid view demonstrate mild narrowing of the left sided C1-2 articulation. Moderate hypertrophic dysarthrosis throughout the cervical spine. Advanced degenerative disk space height loss from C2-C7. There is mild increased translation with fle xion and extension of C2 over C3, although the extension radiograph was severely limited due to motio n. IMPRESSION: 1. No acute fracture. 2. Increased translation at C2-C3 with flexion and poor evaluation with extension due to motion. POS: [facility]
== END 2019-11-18 14:17 | disposition home or self-care (01) ==
LOC: BICRAD 14:16
PROVIDERS: ATTEND Family Medicine
DX: M54.2 Cervicalgia (principal)
CPT/HCPCS: 72050

== ENCOUNTER 2021-01-16 08:45 | Outpatient (CLI) | payer MEDICARE | END 2021-01-16 08:46 | disposition home or self-care (01) | LOC: BICRAD 08:45 | PROVIDERS: ATTEND Internal Medicine Critical Care Medicine | DX: R06.00 Dyspnea, unspecified (principal) | CPT/HCPCS: 71046 ==

== ENCOUNTER 2022-08-14 09:29 | Outpatient (CLI) | payer MEDICARE | END 2022-08-14 09:30 | disposition home or self-care (01) | LOC: RAD 09:29 | PROVIDERS: ATTEND Internal Medicine Critical Care Medicine | DX: R06.00 Dyspnea, unspecified (principal) | CPT/HCPCS: 71046 ==

== ENCOUNTER 2023-02-18 08:02 | Outpatient (CLI) | payer MEDICARE | END 2023-02-18 08:03 | disposition home or self-care (01) | LOC: TBSIIMAG 08:02 | PROVIDERS: ATTEND Neurological Surgery | DX: M47.12 Other spondylosis with myelopathy, cervical region (principal); M47.812 Spondylosis without myelopathy or radiculopathy, cervical region | CPT/HCPCS: 72050; 72141 ==

== ENCOUNTER 2023-05-24 19:30 | Outpatient (CLI) | payer MEDICARE | END 2023-05-24 19:31 | disposition home or self-care (01) | LOC: SLEEPLAB 19:30 | PROVIDERS: ATTEND Internal Medicine Critical Care Medicine | DX: G47.33 Obstructive sleep apnea (adult) (pediatric) (principal); R53.83 Other fatigue; F41.8 Other specified anxiety disorders; R06.83 Snoring; J44.9 Chronic obstructive pulmonary disease, unspecified; I10 Essential (primary) hypertension | CPT/HCPCS: 95811 ==

== ENCOUNTER 2023-07-31 15:23 | Outpatient (CLI) | payer MEDICARE | END 2023-07-31 15:24 | disposition home or self-care (01) | LOC: RAD 15:23 | PROVIDERS: ATTEND Internal Medicine Critical Care Medicine | DX: R06.00 Dyspnea, unspecified (principal) | CPT/HCPCS: 71046 ==

== ENCOUNTER 2024-09-07 13:01 | Outpatient (CLI) | payer MEDICARE | END 2024-09-07 13:02 | disposition home or self-care (01) | LOC: SCSMRI 13:01 | PROVIDERS: ATTEND Neurological Surgery | DX: M50.00 Cervical disc disorder with myelopathy, unspecified cervical region (principal); M47.12 Other spondylosis with myelopathy, cervical region; M47.813 Spondylosis without myelopathy or radiculopathy, cervicothoracic region; Z98.1 Arthrodesis status | CPT/HCPCS: 72050; 72141 ==